=== PATIENT | male | born 1985 | race Caucasian/White ===

== ENCOUNTER 2020-12-17 19:38 | Emergency (ER) | payer BC, OTHER ==
[2020-12-17] MEDS ORDERED: LIDOCAINE 2% VISCOUS 15 ML UDC PO ONE (20:00)
[2020-12-17] MEDS ORDERED: ANTACID SUSP 30 ML UDC (MYLANTA) PO ONE (20:00)
--- NOTE | 2020-12-17 20:33 | ED Abdominal Pain ---
General Chief Complaint: Abdominal/GI Problems Stated Complaint: ADB PAIN Nursing Triage Note: Pt complaining of mid abd pain that started about 3 weeks ago. Pt denies and nausea or other symptoms. Pt seen at urgent care recently and was checked for the flu which was negative. Pt was told to start taking Omeprazole. Pt started taking it but said he stopped because it made his abd pain worse. Sepsis Screen: No Definite Risk History of Present Illness Date Seen by Provider: Dec 17, 2020 Time Seen by Provider: 19:50 Initial Comments Patient is a 35-year-old male who presents with intermittent epigastric pain for the past 3 weeks. Pain is described as sharp and intense and is initially relieved with eating for about 5 minutes and then returns. Pain has been unrelenting for the past several days. He is taken omeprazole for the first s everal days but discontinued it as he thought the omeprazole may be making his current symptoms worse. He has taken omeprazole on and off for several years. He denies nausea, vomiting, hematemesis and coffee-ground emesis. He denies bloody stools or dark tarry stools. He denies routine NSAID, alcohol use. Denies chest pain, shortness of breath, right upper quadrant pain or tenderness. No fever chills or sweats. No other acute symptoms or complaints. Timing/Duration: Changing Over Time, Other Severity/Quality: Severe Radiation: Periumbilical Activities at Onset: Other Modifying Factors: Improves With Other Associated Symptoms: Back Pain, Heartburn, Other Allergies and Home Medications Allergies Coded Allergies: guaifenesin (Verified Allergy, Unknown, 12/17/20) Patient Home Medication List Home Medication List Reviewed: Yes Review of Systems Review of Systems Constitutional: see HPI EENTM: See HPI Respiratory: See HPI Cardiovascular: See HPI Gastrointestinal: See HPI Genitourinary: See HPI Musculoskeletal: see HPI Skin: see HPI Psychiatric/Neurological: See HPI Endocrine: See HPI Hematologic/Lymphatic: See HPI All Other Systems Reviewed Negative Unless Noted: Yes Past Qwhzvue-Slveie-Cmkevd Hx Past Med/Social Hx: Reviewed Nursing Past Med/Soc Hx Patient Social History Alcohol Use: Denies Use Smoking Status: Never a Smoker 2nd Hand Smoke Exposure: No Recent Infectious Disease Expo: No Recent Hopitalizations: No Past Medical History Surgeries: No Respiratory: No Cardiac: No Neurological: No Genitourinary: No Gastrointestinal: No Musculoskeletal: No Endocrine: No HEENT: No Cancer: No Psychosocial: No Integumentary: No Blood Disorders: No Physical Exam Vital Signs Vital Signs - First Documented 12/17/20 19:40 Temp 36.9 Pulse 105 Resp 18 B/P (MAP) 148/95 (112) Pulse Ox 97 O2 Delivery Room Air Capillary Refill : Less Than 3 Seconds Height/Weight/BMI Height: '" Weight: lbs. oz. kg; BMI Method: General Appearance: WD/WN, other HEENT: PERRL/EOMI, pharynx normal Respiratory: lungs clear, no respiratory distress Cardiovascular: normal peripheral pulses, regular rate, rhythm Gastrointestinal: soft, other (Mild diffuse epigastric tenderness) Extremities: normal range of motion, non-tender Back: normal inspection Neurologic/Psychiatric: mac artist II-XII nml as tested, alert, oriented x 3 Progress/Results/Core Measures Results/Orders My Orders Orders - DIOR CHAMBERLAIN DO Antacid Suspension (Mylanta Suspension (12/17/20 20:00) Lidocaine 2% Viscous 15 Ml (Xylocaine Vi (12/17/20 20:00) Medications Given in ED Current Medications Medications Dose Ordered Sig/Jojo Route Start Time Stop Time Status Last Admin Dose Admin Al Hydrox/Mg Hydrox/Simethicone 30 ml ONCE ONCE PO 12/17/20 20:00 12/17/20 20:01 DC 12/17/20 20:05 30 ML Lidocaine HCl 5 ml ONCE ONCE PO 12/17/20 20:00 12/17/20 20:01 DC 12/17/20 20:05 5 ML Vital Signs/I&O 12/17/20 19:40 Temp 36.9 Pulse 105 Resp 18 B/P (MAP) 148/95 (112) Pulse Ox 97 O2 Delivery Room Air Blood Pressure Mean: 112 Departure Communication (Admissions) Patient given GI cocktail with almost immediate relief of symptoms. Suspect symptom pattern most consistent with peptic ulcer disease. Hemodynamically stable. No further testing indicated in the emergency department. Recommend continued therapeutic care with PCP follow-up with consideration of GI referral. Patient verbalizes understanding agreement discharge instructions prior to departure. Impression Primary Impression: Epigastric pain Disposition: HOME, SELF-CARE Condition: Stable Departure-Patient Inst. Referrals: NO,LOCAL PHYSICIAN (PCP/Family) Primary Care Physician Patient Instructions: Peptic Ulcers (DC), Abdominal Pain, Adult ED Add. Discharge Instructions: Your evaluated in the emergency department for upper abdominal pain. The exact cause of your symptoms is not being determined but may be related to peptic ulcer disease or other GI illness. Please avoid all NSAIDs, alcohol, spicy food and stick to a strict bland diet. Take potassium 40 mg twice daily, Pepcid 20 mg twice daily, sucralfate 1 g 4 times daily and Maalox [id number] as needed. Follow-up with your PCP in 3 to 5 days for reevaluation. Return to the ED if new or worsening symptoms All discharge instructions reviewed with patient and/or family. Voiced understanding. Scripts Sucralfate (Sucralfate) 1 Gm Tablet 1 GM PO ACHS, #56 TAB 1 Refill Chew tablet to a slurry and then swallow Prov: DIOR CHAMBERLAIN DO 12/17/20 Famotidine (Acid Transportation Supervisor (FAMOTIDINE)) 20 Mg Tablet 20 MG PO BID, #60 TAB Prov: DIOR CHAMBERLAIN DO 12/17/20 Esomeprazole Magnesium (Nexium) 40 Mg Cap 40 MG PO BID, #60 CAP Prov: DIOR CHAMBERLAIN DO 12/17/20 DIOR CHAMBERLAIN DO Dec 17, 2020 20:33
[2020-12-17] MEDS ORDERED: NF-ESOM40C PO (20:36)
[2020-12-17] MEDS ORDERED: SUCR1TAB PO (20:36)
[2020-12-17] MEDS ORDERED: FAMO20TA3 PO (20:36)
[2020-12-17 20:39] VITALS: BP 148/95
== END 2020-12-17 20:44 | disposition home or self-care (01) ==
LOC: ER FS 19:39
DX: R10.13 Epigastric pain (principal); Z88.8 Allergy status to other drugs, medicaments and biological substances
CPT/HCPCS: 99283

== ENCOUNTER 2020-12-19 16:43 | Emergency (ER) | payer BC ==
[~2020-12-19] VITALS: Ht 172.7 cm; Wt 93.0 kg
[~2020-12-19 16:43] MED LIST: FAMO20TA3 PO; NF-ESOM40C PO; SUCR1TAB PO
[2020-12-19] MEDS ORDERED: morphine INJ 10 MG/ML 1ML (SYR OR VIAL) IVP STA ×3 (17:06→20:53)
[2020-12-19] MEDS ORDERED: ONDANSETRON 4 MG/2 ML (SDV) Z0FRAN IVP ONE (17:15)
[2020-12-19 17:29] LABS: BASOPHILS % (AUTO) 0 % (0-10); EOSINOPHILS % (AUTO) 0 % (0-10); HEMATOCRIT 43 % (40-54); LYMPHOCYTES % (AUTO) 13 % (12-44); MEAN CORPUSCULAR HEMOGLOBIN 26 PG (25-34); MEAN CORPUSCULAR HGB CONC 32 G/DL (32-36); MEAN CORPUSCULAR VOLUME 81 FL (80-99); MONOCYTES % (AUTO) 10 % (0-12); NEUTROPHILS % (AUTO) 76 % (42-75); PLATELET COUNT 238 10^3/uL (130-400); WHITE BLOOD COUNT 12.8 10^3/uL (4.3-11.0)
[2020-12-19 17:30] LABS: LYMPHOCYTES # (AUTO) 1.7 X 10^3 (1.0-4.0); MONOCYTES # (AUTO) 1.3 X 10^3 (0.0-1.0); NEUTROPHILS # (AUTO) 9.7 X 10^3 (1.8-7.8)
[2020-12-19] MEDS ORDERED: CATHETER FLUSH 10 ML SYR IV PRN (17:30)
[2020-12-19] MEDS ORDERED: HOLD METFORMIN - RECEIVED CONTRAST 20 ML VIAL IV SCH (17:30)
[2020-12-19] MEDS ORDERED: IOHEXOL 350 MG/ML 100 ML (OMNIPAQUE 350) VIAL IV ONE (17:30)
[2020-12-19] MEDS ORDERED: NS 100 ML (IVPB) BAG IV ONE (17:30)
[2020-12-19 17:33] LABS: BACTERIA,URINE NEGATIVE /HPF; BILIRUBIN,URINE NEGATIVE (NEGATIVE); CLARITY,URINE CLEAR; COLOR,URINE YELLOW; GLUCOSE, URINE (UA) NEGATIVE (NEGATIVE); KETONES,URINE NEGATIVE (NEGATIVE); LEUKOCYTE ESTERASE ,URINE NEGATIVE (NEGATIVE); NITRITE,URINE NEGATIVE (NEGATIVE); PROTEIN,URINE TRACE (NEGATIVE); SQUAMOUS EPITHELIAL CELL,UR RARE /HPF
[2020-12-19] MEDS: NS IV 1000 ML 1,000 ML IV SCH ×2 (17:33→19:48)
--- NOTE | 2020-12-19 17:46 | ED General ---
General Chief Complaint: Abdominal/GI Problems Stated Complaint: ABD PAIN; FEVER Source of Information: Patient History of Present Illness Date Seen by Provider: Dec 19, 2020 Time Seen by Provider: 17:42 Initial Comments Patient is a 35-year-old male who presents intermittent epigastric pain for the past 3 weeks who was evaluated in this emergency department 2 days ago by this provider. During the last visit, the patient described postprandial abdominal pain which was relieved temporarily by eating. He had resolution of his symptoms while in the ED with a GI cocktail and was discharged home with a prescriptions for heartburn. Patient is compliant with therapy but reports progression of symptoms with generalized abdominal pain, low-grade temperature of greater than 100 F, nausea without vomiting, chills sweats and malaise. He denies constipation and diarrhea. No other acute symptoms. Timing/Duration: Other Associated Systoms: Other Allergies and Home Medications Allergies Coded Allergies: guaifenesin (Verified Allergy, Unknown, 12/17/20) Home Medications Esomeprazole Magnesium 40 Mg Cap, 40 MG PO BID Prescribed by: DIOR CHAMBERLAIN on 12/17/202035 Famotidine 20 Mg Tablet, 20 MG PO BID Prescribed by: DIOR CHAMBERLAIN on 12/17/202035 Sucralfate 1 Gm Tablet, 1 GM PO ACHS Chew tablet to a slurry and then swallow Prescribed by: DIOR CHAMBERLAIN on 12/17/202035 Patient Home Medication List Home Medication List Reviewed: Yes Review of Systems Review of Systems Constitutional: see HPI EENTM: see HPI Respiratory: see HPI Cardiovascular: see HPI Gastrointestinal: see HPI Genitourinary: see HPI Musculoskeletal: back pain Skin: see HPI Psychiatric/Neurological: See HPI Hematologic/Lymphatic: See HPI Immunological/Allergic: see HPI All Other Systems Reviewed Negative Unless Noted: Yes Past Azqtbei-Ngusnf-Cpyhdt Hx Past Med/Social Hx: Reviewed Nursing Past Med/Soc Hx Patient Social History 2nd Hand Smoke Exposure: No Recent Hopitalizations: No Past Medical History Surgeries: No Respiratory: No Cardiac: No Neurological: No Genitourinary: No Gastrointestinal: No Musculoskeletal: No Endocrine: No HEENT: No Cancer: No Psychosocial: No Integumentary: No Blood Disorders: No Physical Exam Vital Signs Vital Signs - First Documented 12/19/20 17:40 Temp 37.4 Pulse 108 Resp 14 B/P (MAP) 128/78 (95) Pulse Ox 98 O2 Delivery Room Air Capillary Refill : Height, Weight, BMI Height: '" Weight: lbs. oz. kg; BMI Method: General Appearance: Moderate Distress (Secondary to pain), Other Eyes: Bilateral Eye Normal Inspection, Bilateral Eye PERRL, Bilateral Eye EOMI HEENT: PERRL/EOMI, Pharynx Normal, Moist Mucous Membranes Neck: Non Tender, Supple Respiratory: Chest Non Tender, Lungs Clear Cardiovascular: Regular Rate, Rhythm Gastrointestinal: Other (Diffuse epigastric pain, tenderness.) Neurologic/Psychiatric: Alert, Oriented x3 Skin: Normal Color Lymphatic: No Adenopathy Focused Exam Lactate Level 12/19/20 17:15: Lactic Acid Level 1.21 Lactic Acid Level Laboratory Tests Test 12/19/20 17:15 Lactic Acid Level 1.21 MMOL/L (0.50-2.00) Progress/Results/Core Measures Suspected Sepsis SIRS Temperature: Pulse: Respiratory Rate: Laboratory Tests 12/19/20 17:15: White Blood Count 12.8H Blood Pressure / Mean: 12/19/20 17:15: Lactic Acid Level 1.21 Laboratory Tests 12/19/20 17:15: Creatinine 0.93, Platelet Count 238, Total Bilirubin 0.7 Results/Orders Lab Results Laboratory Tests Test 12/19/20 17:15 12/19/20 17:19 Range/Units White Blood Count 12.8 H 4.3-11.0 10^3/uL Red Blood Count 5.34 4.35-5.85 10^6/uL Hemoglobin 14.0 13.3-17.7 G/DL Hematocrit 43 40-54 % Mean Corpuscular Volume 81 80-99 FL Mean Corpuscular Hemoglobin 26 25-34 PG Mean Corpuscular Hemoglobin Concent 32 32-36 G/DL Red Cell Distribution Width 13.5 10.0-14.5 % Platelet Count 238 130-400 10^3/uL Mean Platelet Volume 10.0 7.4-10.4 FL Immature Granulocyte % (Auto) 0 % Neutrophils (%) (Auto) 76 H 42-75 % Lymphocytes (%) (Auto) 13 12-44 % Monocytes (%) (Auto) 10 0-12 % Eosinophils (%) (Auto) 0 0-10 % Basophils (%) (Auto) 0 0-10 % Neutrophils # (Auto) 9.7 H 1.8-7.8 X 10^3 Lymphocytes # (Auto) 1.7 1.0-4.0 X 10^3 Monocytes # (Auto) 1.3 H 0.0-1.0 X 10^3 Eosinophils # (Auto) 0.0 0.0-0.3 10^3/uL Basophils # (Auto) 0.0 0.0-0.1 10^3/uL Immature Granulocyte # (Auto) 0.0 0.0-0.1 10^3/uL Sodium Level 136 135-145 MMOL/L Potassium Level 3.7 3.6-5.0 MMOL/L Chloride Level 99 98-107 MMOL/L Carbon Dioxide Level 26 21-32 MMOL/L Anion Gap 11 5-14 MMOL/L Blood Urea Nitrogen 10 7-18 MG/DL Creatinine 0.93 0.60-1.30 MG/DL Estimat Glomerular Filtration Rate > 60 BUN/Creatinine Ratio 11 Glucose Level 128 H 70-105 MG/DL Lactic Acid Level 1.21 0.50-2.00 MMOL/L Calcium Level 9.1 8.5-10.1 MG/DL Corrected Calcium 9.2 8.5-10.1 MG/DL Total Bilirubin 0.7 0.1-1.0 MG/DL Aspartate Amino Transf (AST/SGOT) 36 H 5-34 U/L Alanine Aminotransferase (ALT/SGPT) 98 H 0-55 U/L Alkaline Phosphatase 136 40-136 U/L Total Protein 7.7 6.4-8.2 GM/DL Albumin 3.9 3.2-4.5 GM/DL Lipase 16 8-78 U/L Urine Color YELLOW Urine Clarity CLEAR Urine pH 6.0 5-9 Urine Specific Navarro 1.025 H 1.016-1.022 Urine Protein TRACE H NEGATIVE Urine Glucose (UA) NEGATIVE NEGATIVE Urine Ketones NEGATIVE NEGATIVE Urine Nitrite NEGATIVE NEGATIVE Urine Bilirubin NEGATIVE NEGATIVE Urine Urobilinogen NORMAL < = 1.0 MG/DL Urine Leukocyte Esterase NEGATIVE NEGATIVE Urine RBC (Auto) 1+ H NEGATIVE Urine RBC 5-10 H /HPF Urine WBC NONE /HPF Urine Squamous Epithelial Cells RARE /HPF Urine Crystals NONE /LPF Urine Bacteria NEGATIVE /HPF Urine Casts NONE /LPF Urine Mucus SMALL H /LPF Urine Culture Indicated NO My Orders Orders - DIOR CHAMBERLAIN DO Cbc With Automated Diff (12/19/20 17:06) Comprehensive Metabolic Panel (12/19/20 17:06) Lipase (12/19/20 17:06) Urinalysis (12/19/20 17:06) Ns Iv 1000 Ml (Sodium Chloride 0.9%) (12/19/20 17:15) Morphine Injection (Morphine Injection (12/19/20 17:06) Ondansetron Injection (Zofran Injectio (12/19/20 17:15) Ct Abdomen/Pelvis W (12/19/20 17:06) Lactic Acid Analyzer (12/19/20 17:09) Blood Culture (12/19/20 17:09) Iohexol Injection (Omnipaque 350 Mg/Ml 1 (12/19/20 17:30) Sodium Chloride Flush (Catheter Flush Sy (12/19/20 17:30) Ns (Ivpb) (Sodium Chloride 0.9% Ivpb Bag (12/19/20 17:30) Received Contrast (Hold Metformin- Contr (12/19/20 17:30) Blood Culture (12/19/20 17:35) Blood Culture (12/19/20 17:44) Heparin Drip 36853 Unit/500ml (Heparin (12/19/20 18:45) Heparin (Bolus Per Protocol) (Heparin (B (12/19/20 18:45) Partial Thromboplastin Time (12/19/20 18:35) Protime With Inr (12/19/20 18:35) Medications Given in ED Current Medications Medications Dose Ordered Sig/Jojo Route Start Time Stop Time Status Last Admin Dose Admin Iohexol 100 ml ONCE ONCE IV 12/19/20 17:30 12/19/20 17:31 DC 12/19/20 17:37 100 ML Ondansetron HCl 4 mg ONCE ONCE IVP 12/19/20 17:15 12/19/20 17:16 DC 12/19/20 17:33 4 MG Sodium Chloride 10 ml NEEDED PRN IV 12/19/20 17:30 12/19/20 17:37 10 ML Sodium Chloride 100 ml ONCE ONCE IV 12/19/20 17:30 12/19/20 17:31 DC 12/19/20 17:37 80 ML Vital Signs/I&O 12/19/20 17:40 Temp 37.4 Pulse 108 Resp 14 B/P (MAP) 128/78 (95) Pulse Ox 98 O2 Delivery Room Air Capillary Refill : Departure Communication (Admissions) CT abdomen pelvis with IV contrast: Extensive portal vein thrombosis expanding into splenic and mesenteric veins. Abdominal pain secondary to portal vein thrombosis. IV heparin initiated. Lactic acid normal. Patient request transfer to [facility]. Patient accepted by Dr. Walsh at [facility]. Impression Primary Impression: Epigastric pain Additional Impression: Portal vein thrombosis Disposition: XFER SHT-TRM HOSP Condition: Stable Transfer Transfer Reason: Patient preference Method of Transfer: EMS Departure-Patient Inst. Decision time for Depature: 18:41 Referrals: NO,LOCAL PHYSICIAN (PCP) Primary Care Physician DIOR CHAMBERLAIN DO Dec 19, 2020 17:46
[2020-12-19 17:56] LABS: SODIUM 136 MMOL/L (135-145)
[2020-12-19 17:57] LABS: ALANINE AMINOTRANSFERASE 98 U/L (0-55); ALBUMIN 3.9 GM/DL (3.2-4.5); ALKALINE PHOSPHATASE 136 U/L (40-136); BILIRUBIN,TOTAL 0.7 MG/DL (0.1-1.0); BUN/CREATININE RATIO 11; CALCIUM 9.1 MG/DL (8.5-10.1); CARBON DIOXIDE 26 MMOL/L (21-32); CHLORIDE 99 MMOL/L (98-107); CREATININE SERUM 0.93 MG/DL (0.60-1.30); GFR ESTIMATED > 60; GLUCOSE 128 MG/DL (70-105); POTASSIUM 3.7 MMOL/L (3.6-5.0); TOTAL PROTEIN 7.7 GM/DL (6.4-8.2)
--- NOTE | 2020-12-19 18:16 | Diagnostic Imaging Report ---
CLINICAL INDICATION: Patient with epigastric pain for three weeks and getting worse. No history of surgeries. EXAM: Axial CT scan of the abdomen and pelvis with 80 mL of Omnipaque 350 IV contrast. Sagittal and coronal reformatted images are created. Auto Exposure Controls were utilized during the CT exam to meet ALARA standards for radiation dose reduction. COMPARISON: None. FINDINGS: There is minimal atelectasis involving both lung bases. There are small degenerative spurs involving the L5-S1 level anteriorly. There is diffuse disk bulge at the L5-S1 level with at least moderate bilateral neural foramen narrowing. There is no significant central canal stenosis. There are small spurs involving the visualized lower thoracic spine. There is enlargement of the main portal vein extending to the right and left portal vein regions. There is also enlargement involving the splenic vein and superior mesenteric vein and some of the more distal tributary mesenteric venous branches. There is fat stranding adjacent to the portal vein and all the enlarged vessels. There also appears to be filling defects within the vessels. This is concerning for portal vein thrombosis which extends to the splenic vein, SMV and some tributary vessels. There is transhepatic attenuation difference involving the right and left sides of the liver likely related to perfusion abnormality. There is low density within portions of the right portal vein distally concerning for intravascular thrombus as well. The spleen and pancreas are unremarkable. There is mild fat stranding adjacent to the pancreas, but there is no enlargement or abnormal density of the pancreas. The fat stranding adjacent to the pancreas may be related to the venous thrombotic changes. There is a small amount of fluid along the Gerota's fascia anteriorly and superiorly. Adrenal gland, spleen and gallbladder are unremarkable. Both kidneys are unremarkable with no hydronephrosis, stone, or mass. There are multiple mesenteric and periaortic lymph nodes which are all subcentimeter in size, likely reactive. There is diffuse wall thickening involving the rectum extending to the distal sigmoid colon region which is nonspecific. The appendix is unremarkable. There is no intestinal obstruction. Small fat-containing inguinal hernias are seen, bilaterally. Otherwise, the extra-abdominal and extra-pelvis soft tissue structures are unremarkable. Bladder is partially fluid-filled with bladder wall thickening which may be related to incomplete distention/contraction. IMPRESSION: 1: There is abnormal enlargement with the appearance of intravascular filling defect involving the main portal vein, right and left portal vein branches, splenic vein, superior mesenteric vein and the distal tributary mesenteric venous branches most consistent with thrombosis. There is fat stranding adjacent to these vessels and in the peripancreatic region. There is also multiple mesenteric and para-aortic lymph nodes which are not enlarged and may be reactive. The etiology of the intravascular thrombus is unknown. 2: There is mild peripancreatic fat stranding with no significant abnormality of the pancreas seen. It is possible that this fat stranding may just be related to the venous thrombotic changes. There is no definite evidence of pancreatitis seen. Serology tests would help better evaluate. 3: There is nonspecific wall thickening of the distal sigmoid colon and rectum which may be related to decompression/contraction. Neoplasm should be excluded. 4: There is moderate to severe degenerative disease at the L5-S1 level. Results of this report were discussed with Dr. Joaquim Roach via the telephone on 12/19/2020 at 1800 hours. Dictated by: Dictated on workstation # [id number]
[2020-12-19 18:37] LABS: LIPASE 16 U/L (8-78)
[2020-12-19] MEDS ORDERED: HEParin 1000 UNIT/ML (10ML VIAL) FOR BOLUS IV ONE (18:45)
[2020-12-19] MEDS ORDERED: HEParin DRIP 25000 UNIT/500ML 500 ML IV ONE (18:45)
[2020-12-19 19:03] LABS: PROTHROMBIN TIME PATIENT 13.3 SEC (12.2-14.7)
[2020-12-19 21:38] VITALS: BP 125/75
== END 2020-12-19 21:45 | disposition short-term general hospital (02) ==
LOC: EDUNIT# 16:43 → ER FS 16:45
DX: R10.13 Epigastric pain (principal); I81 Portal vein thrombosis; Z88.8 Allergy status to other drugs, medicaments and biological substances
CPT/HCPCS: 36415; 74177; 80053; 81000; 83605; 83690; 85025; 85610; 85730; 87040

== ENCOUNTER 2021-03-27 18:22 | Emergency (ER) | payer BC ==
[~2021-03-27] VITALS: Ht 172.7 cm; Wt 86.0 kg
[2021-03-27] MEDS ORDERED: LACTATED RINGERS 1,000 ML IV ONE (18:25)
[2021-03-27] MEDS ORDERED: LACTATED RINGERS 1,000 ML IV STA (18:32)
[2021-03-27 18:35] VITALS: BP 115/63
--- NOTE | 2021-03-27 18:36 | ED General ---
General Chief Complaint: Dizziness/Syncope Stated Complaint: SYNCOPE History of Present Illness Date Seen by Provider: March 27, 2021 Time Seen by Provider: 18:33 Initial Comments 35-year-old male presents with dizziness and complaints of "passing out or almost passing out" patient drinks the largest bottle of [place] he could buy today. Patient drinking in approximately 1 hour. His last drink was about an hour and a half ago. Patient reports that he just does not feel good. Patient does not typically drink. No nausea or vomiting at this time. Allergies and Home Medications Allergies Coded Allergies: guaifenesin (Verified Allergy, Unknown, 12/17/20) Home Medications Esomeprazole Magnesium 40 Mg Cap, 40 MG PO BID Prescribed by: DIOR CHAMBERLAIN on 12/17/202035 Famotidine 20 Mg Tablet, 20 MG PO BID Prescribed by: IDOR CHAMBERLAIN on 12/17/202035 Sucralfate 1 Gm Tablet, 1 GM PO ACHS Chew tablet to a slurry and then swallow Prescribed by: DIOR CHAMBERLAIN on 12/17/202035 Patient Home Medication List Home Medication List Reviewed: Yes Review of Systems Review of Systems Constitutional: see HPI; No chills, No fever Respiratory: no symptoms reported Cardiovascular: No chest pain; syncope Gastrointestinal: no symptoms reported Genitourinary: no symptoms reported Musculoskeletal: no symptoms reported Skin: no symptoms reported Psychiatric/Neurological: No Symptoms Reported Past Rinhnfs-Qmtheq-Xyrkjz Hx Past Med/Social Hx: Reviewed Nursing Past Med/Soc Hx Patient Social History Alcohol Use: Occasionally Uses Smoking Status: Current Everyday Smoker Type Used: Cigarettes 2nd Hand Smoke Exposure: No Recent Hopitalizations: No Seasonal Allergies Seasonal Allergies: No Past Medical History Surgeries: No Respiratory: No Cardiac: No Neurological: No Genitourinary: No Gastrointestinal: No Musculoskeletal: No Endocrine: No HEENT: No Cancer: No Psychosocial: No Integumentary: No Blood Disorders: No Physical Exam Vital Signs Vital Signs - First Documented 03/27/21 18:35 Temp 36.3 Pulse 106 Resp 18 B/P (MAP) 115/63 (80) Pulse Ox 97 O2 Delivery Room Air Capillary Refill : Height, Weight, BMI Height: '" Weight: lbs. oz. 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 Norm as Tested Skin: Normal Color, Warm/Dry Progress/Results/Core Measures Suspected Sepsis SIRS Temperature: Pulse: Respiratory Rate: Laboratory Tests 03/27/21 18:32: White Blood Count 10.3 Blood Pressure / Mean: Laboratory Tests 03/27/21 18:32: Creatinine 1.04, Platelet Count 254, Total Bilirubin 0.2 Results/Orders Lab Results Laboratory Tests Test 03/27/21 18:32 Range/Units White Blood Count 10.3 4.3-11.0 10^3/uL Red Blood Count 5.76 4.35-5.85 10^6/uL Hemoglobin 14.6 13.3-17.7 G/DL Hematocrit 46 40-54 % Mean Corpuscular Volume 79 L 80-99 FL Mean Corpuscular Hemoglobin 25 25-34 PG Mean Corpuscular Hemoglobin Concent 32 32-36 G/DL Red Cell Distribution Width 15.3 H 10.0-14.5 % Platelet Count 254 130-400 10^3/uL Mean Platelet Volume 9.8 7.4-10.4 FL Immature Granulocyte % (Auto) 0 % Neutrophils (%) (Auto) 66 42-75 % Lymphocytes (%) (Auto) 28 12-44 % Monocytes (%) (Auto) 4 0-12 % Eosinophils (%) (Auto) 1 0-10 % Basophils (%) (Auto) 1 0-10 % Neutrophils # (Auto) 677.0 H 1.8-7.8 X 10^3 Lymphocytes # (Auto) 2.9 1.0-4.0 X 10^3 Monocytes # (Auto) 0.4 0.0-1.0 X 10^3 Eosinophils # (Auto) 0.1 0.0-0.3 10^3/uL Basophils # (Auto) 0.1 0.0-0.1 10^3/uL Immature Granulocyte # (Auto) 0.0 0.0-0.1 10^3/uL Sodium Level 140 135-145 MMOL/L Potassium Level 3.5 L 3.6-5.0 MMOL/L Chloride Level 105 98-107 MMOL/L Carbon Dioxide Level 21 21-32 MMOL/L Anion Gap 14 5-14 MMOL/L Blood Urea Nitrogen 14 7-18 MG/DL Creatinine 1.04 0.60-1.30 MG/DL Estimat Glomerular Filtration Rate > 60 BUN/Creatinine Ratio 13 Glucose Level 114 H 70-105 MG/DL Calcium Level 9.0 8.5-10.1 MG/DL Corrected Calcium 8.5-10.1 MG/DL Total Bilirubin 0.2 0.1-1.0 MG/DL Aspartate Amino Transf (AST/SGOT) 27 5-34 U/L Alanine Aminotransferase (ALT/SGPT) 40 0-55 U/L Alkaline Phosphatase 83 40-136 U/L Total Protein 7.8 6.4-8.2 GM/DL Albumin 4.6 H 3.2-4.5 GM/DL Serum Alcohol 156 H <10 MG/DL My Orders Orders - ERNIE URIBE DO Alcohol (03/27/21 18:32) Cbc With Automated Diff (03/27/21 18:32) Comprehensive Metabolic Panel (03/27/21 18:32) Ekg Tracing (03/27/21 18:32) Ondansetron Injection (Zofran Injectio (03/27/21 18:45) Lactated Ringers (Lr 1000 Ml Iv Solution (03/27/21 18:32) Lactated Ringers (Lr 1000 Ml Iv Solution (03/27/21 18:25) Ct Head Wo (03/27/21 18:48) Medications Given in ED Current Medications Medications Dose Ordered Sig/Jojo Route Start Time Stop Time Status Last Admin Dose Admin Ondansetron HCl 4 mg ONCE ONCE IVP 03/27/21 18:45 03/27/21 18:46 DC 03/27/21 18:36 4 MG Vital Signs/I&O 03/27/21 18:35 Temp 36.3 Pulse 106 Resp 18 B/P (MAP) 115/63 (80) Pulse Ox 97 O2 Delivery Room Air Capillary Refill : ECG Initial ECG Impression Date: March 27, 2021 Initial ECG Impression Time: 18:33 Initial ECG Rate: 97 Initial ECG Rhythm: Normal Sinus Initial ECG Impression: Nonspecific Changes Comment nsr, non specific st changes, likely early repol Diagnostic Imaging Diagonstic Imaging: CT Plain Films/CT/US/NM/MRI: head Comments Date of Exam:05/23/21 CT HEAD WO PROCEDURE: CT head without contrast. TECHNIQUE: Multiple contiguous axial images were obtained through the brain without the use of intravenous contrast. Auto Exposure Controls were utilized during the CT exam to meet ALARA standards for radiation dose reduction. DATE: March 27, 2021. COMPARISON: None. INDICATION: 35-year-old male, hit head. Syncope. FINDINGS: There is no identified skull fracture. There is no identified radiopaque foreign body. The ventricles and cerebral spinal fluid spaces are of normal size and configuration for the patient's age. There is no mass effect or midline shift. There is no acute intracranial hemorrhage. There is no abnormal extra-axial fluid collection. The visualized portions of the paranasal sinuses, mastoid air cells and middle ears are well aerated. IMPRESSION: No identified acute intracranial abnormality. Departure Impression Primary Impression: Acute alcohol intoxication Qualified Codes: F10.920 - Alcohol use, unspecified with intoxication, uncomplicated Disposition: 01 HOME, SELF-CARE Condition: Stable Departure-Patient Inst. Referrals: CAPO POLANCO PA-C (PCP/Family) Primary Care Physician Patient Instructions: Alcohol Intoxication ED Add. Discharge Instructions: Drink plenty of fluids Do not drive the rest of the day or drink any further alcohol All discharge instructions reviewed with patient and/or family. Voiced understanding. ERNIE URIBE DO March 27, 2021 18:36
[2021-03-27 18:41] LABS: BASOPHILS # (AUTO) 0.1 10^3/uL (0.0-0.1); BASOPHILS % (AUTO) 1 % (0-10); EOSINOPHILS # (AUTO) 0.1 10^3/uL (0.0-0.3); EOSINOPHILS % (AUTO) 1 % (0-10); HEMATOCRIT 46 % (40-54); HEMOGLOBIN 14.6 G/DL (13.3-17.7); LYMPHOCYTES # (AUTO) 2.9 X 10^3 (1.0-4.0); LYMPHOCYTES % (AUTO) 28 % (12-44); MEAN CORPUSCULAR HEMOGLOBIN 25 PG (25-34); MEAN CORPUSCULAR HGB CONC 32 G/DL (32-36); MEAN CORPUSCULAR VOLUME 79 FL (80-99); MEAN PLATELET VOLUME 9.8 FL (7.4-10.4); MONOCYTES # (AUTO) 0.4 X 10^3 (0.0-1.0); MONOCYTES % (AUTO) 4 % (0-12); NEUTROPHILS % (AUTO) 66 % (42-75); PLATELET COUNT 254 10^3/uL (130-400); WHITE BLOOD COUNT 10.3 10^3/uL (4.3-11.0)
[2021-03-27] MEDS ORDERED: ONDANSETRON 4 MG/2 ML (SDV) Z0FRAN IVP ONE (18:45)
[2021-03-27 18:54] LABS: POTASSIUM 3.5 MMOL/L (3.6-5.0); SODIUM 140 MMOL/L (135-145)
[2021-03-27 18:55] LABS: ALANINE AMINOTRANSFERASE 40 U/L (0-55); ALBUMIN 4.6 GM/DL (3.2-4.5); ALKALINE PHOSPHATASE 83 U/L (40-136); BILIRUBIN,TOTAL 0.2 MG/DL (0.1-1.0); BUN/CREATININE RATIO 13; CARBON DIOXIDE 21 MMOL/L (21-32); CHLORIDE 105 MMOL/L (98-107); CREATININE SERUM 1.04 MG/DL (0.60-1.30); GFR ESTIMATED > 60; GLUCOSE 114 MG/DL (70-105); TOTAL PROTEIN 7.8 GM/DL (6.4-8.2)
--- NOTE | 2021-03-27 19:07 | Diagnostic Imaging Report ---
PROCEDURE: CT head without contrast. TECHNIQUE: Multiple contiguous axial images were obtained through the brain without the use of intravenous contrast. Auto Exposure Controls were utilized during the CT exam to meet ALARA standards for radiation dose reduction. DATE: March 27, 2021. COMPARISON: None. INDICATION: 35-year-old male, hit head. Syncope. FINDINGS: There is no identified skull fracture. There is no identified radiopaque foreign body. The ventricles and cerebral spinal fluid spaces are of normal size and configuration for the patient's age. There is no mass effect or midline shift. There is no acute intracranial hemorrhage. There is no abnormal extra-axial fluid collection. The visualized portions of the paranasal sinuses, mastoid air cells and middle ears are well aerated. IMPRESSION: No identified acute intracranial abnormality. Dictated by: Dictated on workstation # [id number]
[2021-03-28 08:11] LABS: NEUTROPHILS # (AUTO) 6.8 X 10^3 (1.8-7.8)
== END 2021-03-27 19:17 | disposition home or self-care (01) ==
LOC: EDUNIT# 18:22 → ER FS 18:25
DX: F10.929 Alcohol use, unspecified with intoxication, unspecified (principal); F17.210 Nicotine dependence, cigarettes, uncomplicated; Y90.6 Blood alcohol level of 120-199 mg/100 ml
CPT/HCPCS: 36415; 70450; 80053; 85025; 93005; 99284; G0480; 80320

== ENCOUNTER 2022-01-04 09:16 | Emergency (ER) | payer BC ==
[~2022-01-04] VITALS: Ht 172 cm; Wt 100.0 kg
[2022-01-04 09:34] LABS: BILIRUBIN,URINE NEGATIVE (NEGATIVE); CLARITY,URINE CLEAR; COLOR,URINE YELLOW; GLUCOSE, URINE (UA) NEGATIVE (NEGATIVE); KETONES,URINE NEGATIVE (NEGATIVE); LEUKOCYTE ESTERASE ,URINE NEGATIVE (NEGATIVE); NITRITE,URINE NEGATIVE (NEGATIVE); PROTEIN,URINE NEGATIVE (NEGATIVE)
[2022-01-04 09:34] LABS: BASOPHILS % (AUTO) 0 % (0-10); EOSINOPHILS # (AUTO) 0.1 10^3/uL (0.0-0.3); EOSINOPHILS % (AUTO) 2 % (0-10); HEMATOCRIT 45 % (40-54); HEMOGLOBIN 14.7 g/dL (13.3-17.7); LYMPHOCYTES # (AUTO) 2.2 10^3/uL (1.0-4.0); LYMPHOCYTES % (AUTO) 41 % (12-44); MEAN CORPUSCULAR HEMOGLOBIN 26 pg (25-34); MEAN CORPUSCULAR HGB CONC 32 g/dL (32-36); MEAN CORPUSCULAR VOLUME 81 fL (80-99); MONOCYTES # (AUTO) 0.4 10^3/uL (0.0-1.0); MONOCYTES % (AUTO) 6 % (0-12); NEUTROPHILS # (AUTO) 2.8 10^3/uL (1.8-7.8); NEUTROPHILS % (AUTO) 51 % (42-75); PLATELET COUNT 245 10^3/uL (130-400); WHITE BLOOD COUNT 5.4 10^3/uL (4.3-11.0)
--- NOTE | 2022-01-04 09:35 | ED General ---
General Stated Complaint: ABD PAIN Source of Information: Patient History of Present Illness Date Seen by Provider: Jan 04, 2022 Time Seen by Provider: 09:20 Initial Comments 36-year-old male presenting with complaints of epigastric and right upper quad rant abdominal pain for the last few days. Last night his pain was more severe at a 5 out of 10. He states it feels similar to last year when he had a blood clot in his portal vein. At that time he had go to [facility] and have a procedure done to remove the blood clot. He was concerned that that may be happening again since he has not been able to afford the Eliquis they wanted him to be taking. He had only taken that for 1 to 2 months until the supply of free medicine had run out. He was unable to afford the cost of the medication. He states that he was not having any nausea, vomiting, shortness of breath, abdominal swelling, diarrhea, blood in his urine, pain with urination, fever, chills. His pain today is a 2 out of 10 but again still feels similar to when he had a blood clot in the portal vein so he came to be evaluated. Timing/Duration: 3-4 Days Severity: Moderate Modifying Factors: worse with Movement (Movement and palpation makes it worse) Associated Systoms: No Chest Pain, No Cough, No Diaphoresis, No Fever/Chills, No Headaches, No Loss of Appetite, No Malaise, No Nausea/Vomiting, No Rash, No Seizure, No Shortness of Air, No Syncope, No Weakness Allergies and Home Medications Allergies Coded Allergies: Iodinated Contrast Media (Verified Allergy, Intermediate, 01/04/22) Flushed, red face, itchy throat. guaifenesin (Verified Allergy, Unknown, 12/17/20) Patient Home Medication List Home Medication List Reviewed: Yes Esomeprazole Magnesium (Nexium) 40 Mg Cap, 40 MG PO BID Prescribed by: DIOR CHAMBERLAIN on 12/17/202035 Famotidine (Acid Business Continuity Planning Director (FAMOTIDINE)) 20 Mg Tablet, 20 MG PO BID Prescribed by: DIOR CHAMBERLAIN on 12/17/202035 Sucralfate (Sucralfate) 1 Gm Tablet, 1 GM PO ACHS Prescribed by: DIOR CHAMBERLAIN on 12/17/202035 Review of Systems Review of Systems Constitutional: No chills, No fever EENTM: no symptoms reported Respiratory: no symptoms reported Cardiovascular: no symptoms reported Gastrointestinal: see HPI Genitourinary: no symptoms reported Musculoskeletal: no symptoms reported Skin: no symptoms reported Psychiatric/Neurological: No Symptoms Reported Hematologic/Lymphatic: Blood Clots (Portal vein thrombosis 1 year ago) Past Bxurxlt-Yaqwba-Xdapiu Hx Seasonal Allergies Seasonal Allergies: No Past Medical History Surgery/Hospitalization HX: Portal Vein Thrombosis 2020 Surgeries: No Respiratory: No Cardiac: No Neurological: No Genitourinary: No Gastrointestinal: No Musculoskeletal: No Endocrine: No HEENT: No Cancer: No Psychosocial: No Integumentary: No Blood Disorders: No Physical Exam Vital Signs Vital Signs - First Documented 01/04/22 09:39 Temp 36.4 Pulse 73 Resp 16 B/P (MAP) 117/65 (82) Pulse Ox 97 O2 Delivery Room Air Capillary Refill : Height, Weight, BMI Height: '" Weight: lbs. oz. 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 Norm as Tested Skin: Normal Color, Warm/Dry Progress/Results/Core Measures Suspected Sepsis SIRS Temperature: Pulse: Respiratory Rate: Laboratory Tests 01/04/22 09:29: White Blood Count 5.4 Blood Pressure / Mean: Laboratory Tests 01/04/22 09:29: Creatinine 1.11, INR Comment 0.9, Platelet Count 245, Total Bilirubin 0.4 Results/Orders Lab Results Laboratory Tests Test 01/04/22 09:20 01/04/22 09:29 Range/Units Urine Color YELLOW Urine Clarity CLEAR Urine pH 7.0 5-9 Urine Specific [place] 1.020 1.016-1.022 Urine Protein NEGATIVE NEGATIVE Urine Glucose (UA) NEGATIVE NEGATIVE Urine Ketones NEGATIVE NEGATIVE Urine Nitrite NEGATIVE NEGATIVE Urine Bilirubin NEGATIVE NEGATIVE Urine Urobilinogen 0.2 < = 1.0 MG/DL Urine Leukocyte Esterase NEGATIVE NEGATIVE Urine RBC (Auto) NEGATIVE NEGATIVE Urine RBC NONE /HPF Urine WBC 0-2 /HPF Urine Squamous Epithelial Cells RARE /HPF Urine Crystals NONE /LPF Urine Bacteria NEGATIVE /HPF Urine Casts NONE /LPF Urine Mucus SMALL H /LPF Urine Culture Indicated NO White Blood Count 5.4 4.3-11.0 10^3/uL Red Blood Count 5.64 H 4.30-5.52 10^6/uL Hemoglobin 14.7 13.3-17.7 g/dL Hematocrit 45 40-54 % Mean Corpuscular Volume 81 80-99 fL Mean Corpuscular Hemoglobin 26 25-34 pg Mean Corpuscular Hemoglobin Concent 32 32-36 g/dL Red Cell Distribution Width 14.3 10.0-14.5 % Platelet Count 245 130-400 10^3/uL Mean Platelet Volume 10.0 9.0-12.2 fL Immature Granulocyte % (Auto) 0 % Neutrophils (%) (Auto) 51 42-75 % Lymphocytes (%) (Auto) 41 12-44 % Monocytes (%) (Auto) 6 0-12 % Eosinophils (%) (Auto) 2 0-10 % Basophils (%) (Auto) 0 0-10 % Neutrophils # (Auto) 2.8 1.8-7.8 10^3/uL Lymphocytes # (Auto) 2.2 1.0-4.0 10^3/uL Monocytes # (Auto) 0.4 0.0-1.0 10^3/uL Eosinophils # (Auto) 0.1 0.0-0.3 10^3/uL Basophils # (Auto) 0.0 0.0-0.1 10^3/uL Immature Granulocyte # (Auto) 0.0 0.0-0.1 10^3/uL Prothrombin Time 12.4 12.2-14.7 SEC INR Comment 0.9 0.8-1.4 Activated Partial Thromboplast Time 26 24-35 SEC Sodium Level 141 135-145 MMOL/L Potassium Level 4.3 3.6-5.0 MMOL/L Chloride Level 106 98-107 MMOL/L Carbon Dioxide Level 27 21-32 MMOL/L Anion Gap 8 5-14 MMOL/L Blood Urea Nitrogen 13 7-18 MG/DL Creatinine 1.11 0.60-1.30 MG/DL Estimat Glomerular Filtration Rate 88 BUN/Creatinine Ratio 12 Glucose Level 113 H 70-105 MG/DL Calcium Level 9.2 8.5-10.1 MG/DL Corrected Calcium 8.5-10.1 MG/DL Total Bilirubin 0.4 0.1-1.0 MG/DL Aspartate Amino Transf (AST/SGOT) 24 5-34 U/L Alanine Aminotransferase (ALT/SGPT) 33 0-55 U/L Alkaline Phosphatase 84 40-136 U/L Total Protein 7.7 6.4-8.2 GM/DL Albumin 4.6 H 3.2-4.5 GM/DL Lipase 24 8-78 U/L My Orders Orders - ENBRYAN LONGO MD Comprehensive Metabolic Panel (01/04/22 09:22) Lipase (01/04/22:22) Ua Culture If Indicated (01/04/22 09:22) Ed Iv/Invasive Line Start (01/04/22 09:22) Cbc With Automated Diff (01/04/22 09:22) Protime With Inr (01/04/22 09:33) Partial Thromboplastin Time (01/04/22 09:33) Ct Abdomen/Pelvis W (01/04/22 09:33) Iohexol Injection (Omnipaque 350 Mg/Ml 1 (01/04/22 09:45) Received Contrast (Hold Metformin- Contr (01/04/22 09:45) Ns (Ivpb) (Sodium Chloride 0.9% Ivpb Bag (01/04/22 09:45) Diphenhydramine Injection (Benadryl Inje (01/04/22 10:05) Diphenhydramine Injection (Benadryl Inje (01/04/22 10:05) Medications Given in ED Current Medications Medications Dose Ordered Sig/Jojo Route Start Time Stop Time Status Last Admin Dose Admin Iohexol 100 ml ONCE ONCE IV 01/04/22 09:45 01/04/22 09:46 DC 01/04/22 10:02 100 ML Sodium Chloride 100 ml ONCE ONCE IV 01/04/22 09:45 01/04/22 09:46 DC 01/04/22 10:02 100 ML Vital Signs/I&O 01/04/22 01/04/22 09:39 11:46 Temp 36.4 Pulse 73 75 Resp 16 16 B/P (MAP) 117/65 (82) 116/66 Pulse Ox 97 98 O2 Delivery Room Air Room Air Capillary Refill : Progress Note #1: Progress Note Obtain basic labs including coags. CT scan of the abdomen pelvis with IV contrast to evaluate for possible recurrent portal vein thrombosis. Progress Note #2: Progress Note Labs appear stable without acute significant abnormality. He did have some it david and felt like he had a scratchy throat when he had his contrast for CT scan. Benadryl 25 mg IV was administered which helps his symptoms. Progress Note #3: Progress Note His CT scan did not demonstrate any acute recurrent portal vein thrombosis. He did have dilated collateral veins appear to be compensating for history of a prior clot. He had no other acute abnormality on his scan to account for his pain. Counseled patient on results and findings. Advised to follow-up low-fat bland diet. Encouraged to check with the clinic and he may need to be seen by a liver specialist for continued symptoms. If he has worsening pain or problems he could return to be seen again for further evaluation. In the future avoid IV contrast unless he had absolutely has to have it and if so premedicate with steroids and antihistamines. Diagnostic Imaging Diagonstic Imaging: CT Plain Films/CT/US/NM/MRI: abdomen, pelvis Comments [facility] [place] NAME: [facility] REC#: [id number] PT STATUS: [facility] ER : 1985 PHYSICIAN: BRYAN CUBA MD ADMIT DATE: 01/04/22/ER FS Draft Date of Exam:01/04/22 CT ABDOMEN/PELVIS W PROCEDURE: CT abdomen and pelvis with contrast. TECHNIQUE: Multiple contiguous axial images were obtained through the abdomen and pelvis after administration of intravenous contrast. Auto Exposure Controls were utilized during the CT exam to meet ALARA standards for radiation dose reduction. All CT scans use one or more of the following dose optimizing techniques: automated exposure control, MA and/or KvP adjustment based on patient size and exam type or iterative reconstruction. INDICATION: Right upper quadrant pain, epigastric pain. The patient has a history of portal vein thrombus and is compared with CT abdomen and pelvis dated 12/19/2020. FINDINGS: Previous occlusive thrombus in the extrahepatic portal vein and the SMV and the splenic vein is no longer identified. There is, however cavernous transformation at the isidro hepatis. No identifiable residual or recurrent thrombotic vascular changes are found. There were no findings of hepatic end organ ischemia. There is no bile duct dilatation. There is no liver mass. The gallbladder, spleen, adrenals and pancreas are unremarkable. Kidneys unobstructed, nonfocal and nonacute. The adrenals negative. There is no appendicitis or diverticulitis. There is no ascites, abscess, hematoma, acute fluid collection or findings of hemorrhage. No arterial obstruction, aneurysm or thrombus. The lung bases clear. The bony structures nonacute. IMPRESSION: Prior portal vein splenic and superior mesenteric venous thrombus no longer found. 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 There were no findings today of solid or hollow visceral end organ ischemia. No secondary findings of portal hypertension a nonfocal normal-sized spleen with no ascites is present. No bowel, biliary or urinary tract obstruction, inflammatory process or acute abnormalities found. Dictation is delayed owing to technical malfunction prior to this dictation. Pertinent results were discussed by phone with the Emergency Room physician. Dictated on workstation # [id number] Dict: 01/04/22 1013 Trans: 01/04/22 1216 [id number] Interpreted by: MAINOR PEARSON Electronically signed by: Departure Impression Primary Impression: Epigastric abdominal pain Additional Impression: RUQ abdominal pain Disposition: 01 HOME, SELF-CARE Condition: Stable Departure-Patient Inst. Decision time for Depature: 11:25 Referrals: CAPO POLANCO PA-C (PCP/Family) Primary Care Physician Patient Instructions: Abdominal Pain, Adult ED, Ulcer and Gastritis Diet Add. Discharge Instructions: No signs of thrombus/clots in the portal vein or liver. You do have some dilated blood vessels to the liver from chronic changes with your portal vein and liver but the CT does not show signs of fluid building up in the abdomen/pelvis and no inflammation. Try following a low fat/bland diet and check with clinic as you may still need to follow up with Liver specialist if you continue to have pains but right now you at least do not have anything to have to be rushed to the hospital for a procedure to remove a clot. BRYAN CUBA MD Jan 04, 2022 09:35
[2022-01-04 09:45] LABS: INR 0.9 (0.8-1.4); PROTHROMBIN TIME PATIENT 12.4 SEC (12.2-14.7)
[2022-01-04] MEDS ORDERED: NS 100 ML (IVPB) BAG IV ONE (09:45)
[2022-01-04] MEDS ORDERED: HOLD METFORMIN - RECEIVED CONTRAST 20 ML VIAL IV SCH (09:45)
[2022-01-04] MEDS ORDERED: IOHEXOL 350 MG/ML 100 ML (OMNIPAQUE 350) VIAL IV ONE (09:45)
[2022-01-04 09:48] LABS: WBC,URINE 0-2 /HPF
[2022-01-04 09:49] LABS: BACTERIA,URINE NEGATIVE /HPF; SQUAMOUS EPITHELIAL CELL,UR RARE /HPF
[2022-01-04] MEDS ORDERED: diphenhydrAMINE 50 MG/ML INJ (BENADRYL) IVP STA (10:05)
[2022-01-04] MEDS ORDERED: diphenhydrAMINE 50 MG/ML INJ (BENADRYL) ONE (10:05)
[2022-01-04 10:23] LABS: CARBON DIOXIDE 27 MMOL/L (21-32); CHLORIDE 106 MMOL/L (98-107); POTASSIUM 4.3 MMOL/L (3.6-5.0); SODIUM 141 MMOL/L (135-145)
[2022-01-04 10:24] LABS: ALANINE AMINOTRANSFERASE 33 U/L (0-55); ALBUMIN 4.6 GM/DL (3.2-4.5); ALKALINE PHOSPHATASE 84 U/L (40-136); BILIRUBIN,TOTAL 0.4 MG/DL (0.1-1.0); BUN/CREATININE RATIO 12; CALCIUM 9.2 MG/DL (8.5-10.1); CREATININE SERUM 1.11 MG/DL (0.60-1.30); GFR ESTIMATED 88; GLUCOSE 113 MG/DL (70-105); TOTAL PROTEIN 7.7 GM/DL (6.4-8.2)
[2022-01-04 10:34] LABS: LIPASE 24 U/L (8-78)
[2022-01-04 11:46] VITALS: BP 116/66
--- NOTE | 2022-01-04 12:16 | Diagnostic Imaging Report ---
PROCEDURE: CT abdomen and pelvis with contrast. TECHNIQUE: Multiple contiguous axial images were obtained through the abdomen and pelvis after administration of intravenous contrast. Auto Exposure Controls were utilized during the CT exam to meet ALARA standards for radiation dose reduction. All CT scans use one or more of the following dose optimizing techniques: automated exposure control, MA and/or KvP adjustment based on patient size and exam type or iterative reconstruction. INDICATION: Right upper quadrant pain, epigastric pain. The patient has a history of portal vein thrombus and is compared with CT abdomen and pelvis dated 12/19/2020. FINDINGS: Previous occlusive thrombus in the extrahepatic portal vein and the SMV and the splenic vein is no longer identified. There is, however cavernous transformation at the isidro hepatis. No identifiable residual or recurrent thrombotic vascular changes are found. There were no findings of hepatic end organ ischemia. There is no bile duct dilatation. There is no liver mass. The gallbladder, spleen, adrenals and pancreas are unremarkable. Kidneys unobstructed, nonfocal and nonacute. The adrenals negative. There is no appendicitis or diverticulitis. There is no ascites, abscess, hematoma, acute fluid collection or findings of hemorrhage. No arterial obstruction, aneurysm or thrombus. The lung bases clear. The bony structures nonacute. IMPRESSION: Prior portal vein splenic and superior mesenteric venous thrombus no longer found. 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 There were no findings today of solid or hollow visceral end organ ischemia. No secondary findings of portal hypertension a nonfocal normal-sized spleen with no ascites is present. No bowel, biliary or urinary tract obstruction, inflammatory process or acute abnormalities found. Dictation is delayed owing to technical malfunction prior to this dictation. Pertinent results were discussed by phone with the Emergency Room physician. Dictated by: Dictated on workstation # [id number]
== END 2022-01-04 11:45 | disposition home or self-care (01) ==
LOC: EDUNIT# 09:16 → ER FS 09:18
DX: R10.13 Epigastric pain (principal)
CPT/HCPCS: 36415; 74177; 80053; 81000; 83690; 85025; 85610; 85730; Q9967

== ENCOUNTER 2022-10-19 10:10 | Emergency (ER) | payer BC ==
[~2022-10-19] VITALS: Ht 172.7 cm; Wt 95.0 kg
--- NOTE | 2022-10-19 10:48 | ED Upper Extremity ---
General Chief Complaint: Upper Extremity Stated Complaint: WC LT THUMB INJ Nursing Triage Note: Pt ambulated to ER. Pt states while using an ice pick at work he missed and hit the machine with his left hand. Source: patient Exam Limitations: no limitations History of Present Illness Date Seen by Provider: Oct 19, 2022 Time Seen by Provider: 10:36 Initial Comments This 37-year-old gentleman presents to the emergency room with a work comp injury to the left hand. He was striking a piece of equipment with the ball of his left hand and missed. In the process he struck the mid left thumb on a piece of metal. He has pain and paresthesia throughout the left thumb and significantly decreased range of motion. He retains sensation and capillary refill. He denies injury elsewhere. Incident happened just prior to arrival. He has not taken any medications for the pain. Allergies and Home Medications Allergies Coded Allergies: Iodinated Contrast Media (Verified Allergy, Intermediate, 01/04/22) Flushed, red face, itchy throat. guaifenesin (Verified Allergy, Unknown, 12/17/20) Patient Home Medication List Home Medication List Reviewed: Yes Esomeprazole Magnesium (Nexium) 40 Mg Cap, 40 MG PO BID Prescribed by: DIOR CHAMBERLAIN on 12/17/202035 Famotidine (Acid Forensic Medical Examiner (FAMOTIDINE)) 20 Mg Tablet, 20 MG PO BID Prescribed by: DIOR CHAMBERLAIN on 12/17/202035 Sucralfate (Sucralfate) 1 Gm Tablet, 1 GM PO ACHS Prescribed by: DIOR CHAMBERLAIN on 12/17/202035 Review of Systems Constitutional: no symptoms reported EENTM: no symptoms reported Respiratory: no symptoms reported Cardiovascular: no symptoms reported Gastrointestinal: no symptoms reported Genitourinary: no symptoms reported Musculoskeletal: see HPI Skin: see HPI Psychiatric/Neurological: No Symptoms Reported Past Fbyimzf-Kcpdlt-Swqywf Hx Patient Social History Tobacco Use?: Yes Tobacco type used: Cigarettes Smoking Status: Current Everyday Smoker Use of E-Cig and/or Vaping dev: No Substance use?: No Alcohol Use?: Yes Alcohol Frequency: Rarely Pt feels they are or have been: No Seasonal Allergies Seasonal Allergies: No Past Medical History Surgery/Hospitalization HX: Portal Vein Thrombosis 2020 Surgeries: No Respiratory: No Cardiac: No Neurological: No Genitourinary: No Gastrointestinal: No Musculoskeletal: No Endocrine: No HEENT: No Cancer: No Psychosocial: No Integumentary: No Blood Disorders: No Physical Exam Vital Signs Vital Signs - First Documented 10/19/22 10:20 Temp 35.6 Pulse 90 Resp 20 B/P (MAP) 141/81 (101) Pulse Ox 97 O2 Delivery Room Air Capillary Refill : Height, Weight, BMI Height: '" Weight: lbs. oz. kg; 31.00 BMI Method: General Appearance: WD/WN, no apparent distress HEENT: normal ENT inspection Neck: normal inspection Cardiovascular: regular rate, rhythm Respiratory: normal breath sounds, no respiratory distress Elbow/Forearm: non-tender, Left Wrist: Yes normal inspection, Yes non-tender, Yes no evidence of injury, Yes normal ROM Hand: Left (There is pain, swelling, and stiffness of the left thumb. There is erythema on the skin of the radial aspect where he struck the metal. Sensation is intact but dulled. Capillary refill intact. Active and passive range of motion significantly limited by pain.) Neurologic/Psychiatric: alert, normal mood/affect, oriented x 3 Skin: normal color, warm/dry, other (As above) Progress/Results/Core Measures Results/Orders My Orders Orders - MANJIT CORONA MD Hand 3 View Left (10/19/22 10:41) Vital Signs/I&O 10/19/22 10:20 Temp 35.6 Pulse 90 Resp 20 B/P (MAP) 141/81 (101) Pulse Ox 97 O2 Delivery Room Air Blood Pressure Mean: 101 Progress Progress Note : Progress Note No acute fractures or dislocations were observed on the hand x-ray. Symptomatic treatment with gradual increase of activity as pain allows was recommended. Occupational health paperwork was completed. Patient was referred to urgent care for his urine drug screening. Diagnostic Imaging Diagonstic Imaging: Xray Plain Films/CT/US/NM/MRI: hand Comments Left hand x-ray viewed by me and report reviewed. See report below: NAME: DORIS COTTO [facility] REC#: [id number] PT STATUS: REG ER : 1985 PHYSICIAN: MANJIT CORONA MD ADMIT DATE: 10/19/22/ER FS Draft Date of Exam:10/19/22 HAND 3 VIEW LEFT Clinical indications: Patient with blunt trauma. Attention to thumb. EXAM: X-ray of the left hand, 3 views. COMPARISON: None. FINDINGS: The thumb shows no acute fracture or dislocation. There are old healed fracture changes involving the distal aspect of 5th metacarpal bone. Remainder of the left hand is unremarkable. IMPRESSION: There is no acute fracture or dislocation. Dictated on workstation # [id number] Dict: 10/19/22 [id number] Trans: 10/19/22 1133 [facility] [id number] Interpreted by: WINSOME RG MD Departure Impression Primary Impression: Contusion of left thumb Qualified Codes: S60.012A - Contusion of left thumb without damage to nail, initial encounter Disposition: HOME, SELF-CARE Condition: Stable Departure-Patient Inst. Decision time for Depature: 11:49 Referrals: NO,LOCAL PHYSICIAN (PCP/Family) Primary Care Physician Patient Instructions: Contusion (DC) Add. Discharge Instructions: You may elevate and ice in 20-minute intervals over the first 24 to 48 hours to reduce pain and swelling. Use ibuprofen up to 600 mg every 6 hours as needed to treat pain. Add Tylenol (acetaminophen) up to 1000 mg every 6 hours as needed for additional pain relief. Gradually increase level of activity as pain allows. Exercise range of motion to prevent stiffening of the joints. Return to care if you are not improving as expected over the next few days or if symptoms are worsening despite following these instructions. All discharge instructions reviewed with patient and/or family. Voiced understanding. MANJIT CORONA MD Oct 19, 2022 10:48
--- NOTE | 2022-10-19 11:34 | Diagnostic Imaging Report ---
Clinical indications: Patient with blunt trauma. Attention to thumb. EXAM: X-ray of the left hand, 3 views. COMPARISON: None. FINDINGS: The thumb shows no acute fracture or dislocation. There are old healed fracture changes involving the distal aspect of 5th metacarpal bone. Remainder of the left hand is unremarkable. IMPRESSION: There is no acute fracture or dislocation. Dictated by: Dictated on workstation # [id number]
[2022-10-19 11:59] VITALS: BP 141/81
== END 2022-10-19 12:01 | disposition home or self-care (01) ==
LOC: EDUNIT# 10:10 → ER FS 10:12
DX: S60.012A Contusion of left thumb without damage to nail, initial encounter (principal); F17.210 Nicotine dependence, cigarettes, uncomplicated; Z28.310 Unvaccinated for COVID-19; W22.8XXA Striking against or struck by other objects, initial encounter; Y92.59 Other trade areas as the place of occurrence of the external cause; Y99.0 Civilian activity done for income or pay
CPT/HCPCS: 73130; 99281